=== PATIENT | male | born 1955 | race Caucasian/White ===

== ENCOUNTER 2019-12-17 07:12 | Outpatient (CLI) | payer OTHER, SELFPAY ==
--- NOTE | ~2019-12-17 | CT_ITS ---
EXAMINATION:CT lung screening DATE: 12/17/2019 07:35 INDICATION: Personal history of tobacco dependence. Smoker who quit 15 years ago with 30 pack year hi story. TECHNIQUE: Computed tomography (CT) of the chest was performed without intravenous contrast. Automate d exposure control and iterative reconstruction technique were employed. The dose-length product (DLP ) was 356.58 mGy-cm. COMPARISON: Chest CT 08/24/2018 FINDINGS: Calcified bilateral lung nodules and calcified left hilar and mediastinal lymph nodes are c onsistent with old granulomatous disease. No pleural effusion. The heart size is normal. There are co ronary artery calcifications. No pericardial effusion. Calcifications in the spleen are consistent wi th old granulomatous disease. There is mild thoracic spondylosis. IMPRESSION: 1. Lung-RADS category 1: Negative. Reviewed, dictated and finalized at location A.
== END 2019-12-17 07:13 | disposition home or self-care (01) ==
PROVIDERS: PCP Family Medicine; Visit Provider Family Medicine
DX: Z12.2 Encounter for screening for malignant neoplasm of respiratory organs (principal); Z87.891 Personal history of nicotine dependence
CPT/HCPCS: G0297

== ENCOUNTER 2020-04-02 07:41 | Outpatient (CLI) | payer OTHER, SELFPAY ==
--- NOTE | ~2020-04-02 | US_ITS ---
EXAMINATION: US aorta [facility] DATE: 04/02/2020 08:19 INDICATION: Abdominal aortic aneurysm. Screening for cardiovascular disorders. TECHNIQUE: Grayscale, color Doppler, and pulsed Doppler images of the aorta and common iliac arteries were obtained. COMPARISON: None. FINDINGS: The proximal aorta measures 2.8 cm. The mid aorta measures 2.5 cm. The distal aorta measures 1.9 cm. The right common iliac artery measures 1.4 cm. The left common iliac artery measures 1.4 cm. IMPRESSION: 1. Normal caliber abdominal aorta. Reviewed, dictated and finalized at location A. EXAMINER
== END 2020-04-02 07:42 | disposition home or self-care (01) ==
PROVIDERS: PCP Family Medicine; Visit Provider Family Medicine
DX: Z13.6 Encounter for screening for cardiovascular disorders (principal)
CPT/HCPCS: 76706

== ENCOUNTER 2020-05-11 07:44 | Outpatient (CLI) | payer OTHER, SELFPAY ==
--- NOTE | 2020-06-24 16:02 | WPDHOMESLEEP ---
Sleep Study - Home Unattended Date of Study: 05/11/20 Ordering Provider: Orlando Campos MD Interpreting Physician: Marcia Alfred MD Home Sleep Study Type: Apnea Link Air Height: 1.8 m Weight: 109.316 kg Body Mass Index: 33.6 Neck Circumference (inches): 18 [place]vord: 3 Reason for Sleep Study Feeling tired in the day, restless sleep Sleep History Yao Drake is a 65 year old man with occasional snoring, poor quality sleep and frequent fatigue. He rarely awakens at night with heartburn, belching or coughing. He rarely awakens from sleep feeling short of breath. There is a family history history of sleep issues with his sisters having sleep apnea using CPAP. he occasionally has trouble sleeping at night with a cold. He does not wake up gasping for breath during the night. He rarely sweats excessively at night. He does not notice his heart pounding or beating irregularly at night. He rarely falls asleep during the day, never involuntarily, never while driving. He does not fall asleep while exerting physical effort. He does not have loss of muscle tone with strong emotion. He does not have daytime difficulties due to excessive sleepiness. He does not feel paralyzed on waking or falling asleep. He occasionally has vivid dreamlike scenes upon awakening or falling asleep. He is not afraid to go to sleep. He occasionally remembers his dreams. He occasionally has nightmares. He occasionally has racing thoughts. He rarely feels sad or depressed, rarely feels anxious. He does not have muscular tension. He rarely notices parts of his body jerking. He rarely kicks at night. He rarely has crawling or aching feelings in his legs at night. He rarely has any leg pain at night. He does not have morning jaw pain. He rarely grinds his teeth during sleep. He rarely is bothered by pain during the day. He is not awakened by pain at night. He occasionally wakes up feeling stiff in the morning with sore or achy muscles. He rarely wakes up with pain in the spine. He often awakes in the morning feeling refreshed. He has had no change in weight in the last 12 months. His office note indicates possible erectile dysfunction. Normal bedtime is between 9 and 10:00 p.m., falling asleep within 1/2 hour, waking typically twice at night. When he wakes at night he will read. He stays awake on average for 1/2 hour. He wakes the morning at 8:00 a.m.. We can schedule shows that he may go to bed later, between 10 and 11:00 p.m. still waking at 8 in the morning. He does take naps in the afternoon or evening. He does feel refreshed after a short 10-15 minute nap. Habits: Tobacco quit 15 years ago. Thirty pack year history. 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 Smoking status: Former smoker Alcohol intake: current Alcohol use details: regularly consumes beer Medications Medications: cholesterol medication daily, unknown name Sleep Procedure This test was performed using 4 channel monitoring including respiratory effort channel, snoring channel, heart rate channel, and oxygen saturation channel. This study was scored using CMS guidelines. Sleep Architecture Not applicable for home sleep test. Respiratory Analysis The duration of the study was 9 hours and 20 minutes. The evaluation time was 9 hour
[2020-06-24 16:33] VITALS: BMI 33.6
== END 2020-05-11 07:45 | disposition home or self-care (01) ==
LOC: ANHCSM 07:45
PROVIDERS: PCP Family Medicine; Visit Provider Family Medicine
DX: G47.33 Obstructive sleep apnea (adult) (pediatric) (principal)
CPT/HCPCS: 95806

== ENCOUNTER 2020-05-14 12:01 | Outpatient (CLI) | payer OTHER, SELFPAY ==
[2020-05-14 12:48] LABS: SARS-CoV-2 Ag Negative (Negative)
== END 2020-05-14 12:02 | disposition home or self-care (01) ==
LOC: CHSLAB 12:04
PROVIDERS: PCP Family Medicine; Visit Provider Family Medicine
DX: Z20.828 Contact with and (suspected) exposure to other viral communicable diseases (principal)
CPT/HCPCS: 87426

== ENCOUNTER 2020-05-20 12:31 | Outpatient (CLI) | payer OTHER, SELFPAY ==
[2020-05-20 13:05] LABS: Basophils Absolute Auto 0.02 K/mm3 (0.00-0.10); Basophils Percent Auto 0.4 % (0.0-1.0); Eosinophils Absolute Auto 0.13 K/mm3 (0.02-0.50); Eosinophils Percent Auto 2.4 % (1.0-6.0); Hematocrit 42.1 % (37.0-46.0); Hemoglobin 14.7 g/dL (12.4-15.3); Immature Granulocyte Absolute 0.04 K/mm3 (0.00-0.00); Immature Granulocyte Percent A 0.7 % (0.0-0.0); Lymphocytes Percent Auto 26.1 % (18.0-42.0); Mean Corpuscular HGB Conc 34.9 g/dL (32.0-36.0); Mean Corpuscular Hemoglobin 31.8 pg (27.0-31.0); Mean Corpuscular Volume 91.1 fL (78.0-102.0); Monocytes Absolute Auto 0.55 K/mm3 (0.10-0.90); Monocytes Percent Auto 10.3 % (2.0-11.0); Neutrophils Absolute Auto 3.2 K/mm3 (1.7-7.2); Neutrophils Percent Auto 60.1 % (50.0-70.0); Platelet Count Result 226 K/mm3 (150-420); Red Blood Count 4.62 M/mm3 (4.70-6.10); White Blood Count 5.4 K/mm3 (4.8-10.8)
[2020-05-20 13:14] LABS: Monoscreen Negative (Negative); Negative Monotest Control Negative (Negative); Positive Monotest Control Positive (Positive)
[2020-05-20 14:14] LABS: Alanine Aminotransferase 42 U/L (16-63); Albumin Level 3.7 g/dL (3.4-5.0); Alkaline Phosphatase 57 U/L (46-116); Anion Gap 11 mmol/L (8-16); Aspartate Amino Transferase 41 U/L (15-37); Bilirubin,Total 0.7 mg/dL (0.00-1.00); Blood Urea Nitrogen 12 mg/dL (7-18); Calcium 8.9 mg/dL (8.5-10.1); Carbon Dioxide 25 mmol/L (21-32); Chloride 98 mmol/L (98-108); Estimated Glomerular Filt Rate > 60; Glucose 187 mg/dL (70-99); Osmolality Calculated 282 mOsm/kg (285-295); Potassium 3.9 mmol/L (3.5-5.1); Sodium 134 mmol/L (136-145); Total Protein 7.3 g/dL (6.4-8.2)
[2020-05-20 23:40] LABS: SARS-CoV-2 RNA PCR Positive
== END 2020-05-20 12:32 | disposition home or self-care (01) ==
PROVIDERS: PCP Family Medicine; Visit Provider Family Medicine
DX: U07.1 COVID-19 (principal); R53.81 Other malaise; J06.9 Acute upper respiratory infection, unspecified
CPT/HCPCS: 80053; 85025; 86308; 87081; 87635; 87880; C9803; U0003

== ENCOUNTER 2022-12-14 01:14 | Day surgery (SDC) | payer OTHER, SELFPAY ==
[2022-12-06 13:49] VITALS: BMI 32.1
[2022-12-14 07:09] VITALS: BP 140/80; PULSE 89; RESP 16; TEMP 36.3; O2SAT 96
[2022-12-14] MEDS: LACTATED RINGERS 1,000 ML 150 ML IV CONT (07:20)
--- NOTE | 2022-12-14 07:59 | P.PNAN_ITS ---
Anes - Initial Pre Proc Eval Procedure: Operation Date: 12/14/22 08:30 Proposed Procedures p Colonoscopy - Marcus Santos MD Date/Time: 12/14/22 07:59 Surgeon: Marcus Santos MD Pre Op Diagnosis: hx colon polyps Patient Data Age: 67 Gender: M Height: 1.8 m Weight: 103.6 kg Last Vital Signs Temp 97.4 F L 12/14/22 07:09 Pulse 89 12/14/22 07:09 Resp 16 12/14/22 07:09 BP 140/80 12/14/22 07:09 Pulse Ox 96 12/14/22 07:09 O2 Del Method Room Air 12/14/22 07:09 Allergies Allergy/AdvReac Type Severity Reaction Status Date / Time No Known Allergies Allergy Verified 12/14/22 07:08 Home Medications Medication Instructions Recorded Confirmed Type atorvastatin 20 mg tablet 20 mg PO HS 12/06/22 12/14/22 History Patient hx anesthesia problems: none Family hx anesthesia problems: none Results Review: All pre-operative results and documents have been reviewed as part of the pre-operative evaluation. 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 Smoking packs per day: 1 Smoking cigarettes per day: 20.0 Years smoked: 30 Smoking pack-years: 30.00 Smoking status: Former smoker Tobacco type: cigarettes Alcohol intake: current Drinks per week: 24 Alcohol use details: BEERS Substance use: never Substance use type: does not use Living arrangements: with family Spiritual care concerns: No Anes - Eval Final PreProcedure Day of Procedure 12/14/22 07:59 Patient weight: obese Heart: regular rate and rhythm Lungs: clear to auscultation Airway: Mallampati scale class II Neurological: alert and oriented Last oral intake: >/= 8 hours ASA classification: II Emergent: no Anesthetic plan: proceed Anesthesia type and monitoring: general GIVS and standard monitoring Results Review: All pre-operative results and documents have been reviewed as part of the pre- operative evaluation. Informed Consent: The patient's anesthetic plan and its attendant risks and benefits were discussed with the patient/family/POA. Questions were solicited and answers provided to the satisfaction of the patient/family/POA.
--- NOTE | 2022-12-14 08:13 | PM.HPGS ---
History of Present Illness History of Present Illness Consent: Risks, benefits, and alternatives have been discussed and questions answered. Patient agrees to proceed with procedure. Chief complaint: hx colon polyps Narrative: Yao Drake is a 67 year old male with colon polyp in 2019 Review of Systems Constitutional: Constitutional: Denies headache(s) and Denies weakness Eyes: Eyes: Denies blurry vision ENT: Reports Normal hearing present, Denies headache(s) and Denies neck pain Cardiovascular: Cardiovascular: Denies chest pain and Denies dyspnea Respiratory: Respiratory: Denies dyspnea Gastrointestinal: Gastrointestinal: Reports no additional gastrointestinal complaints Genitourinary: Genitourinary: Denies dysuria Musculoskeletal: Musculoskeletal: Denies neck pain Integumentary/Breasts: Skin/Breast: Denies dry skin Neurologic: Reports Normal hearing present, Denies headache(s) and Denies weakness Psychiatric: Psychiatric: Denies anxiety Endocrine: Endocrine: Denies change in body appearance Hematologic/Lymphatic: Hematologic/Lymphatic: Denies easy bleeding Allergic/Immunologic: Allergic/Immunologic: Denies urticaria PMFSH Past Medical History Medical History (Updated 12/14/22 @ 08:14 by Marcus Santos MD) Adenomatous colon polyp Hay fever Impaired fasting glucose Male erectile disorder Mixed hyperlipidemia Tubular adenoma of colon Family History Family History (Updated 06/24/20 @ 16:09 by Marcia Alfred MD) Sibling Obstructive sleep apnea he has 2 sisters with sleep apnea Mother Diabetes mellitus Father Lung cancer father smoked tobacco, had asbestos exposure Social History Social History (Updated 06/24/20 @ 16:06 by Marcia Alfred MD) Social History: 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 Smoking packs per day: 1 Smoking cigarettes per day: 20.0 Years smoked: 30 Smoking pack-years: 30.00 Smoking status: Former smoker Tobacco type: cigarettes Alcohol intake: current Drinks per week: 24 Alcohol use details: BEERS Substance use: never Substance use type: does not use Living arrangements: with family Spiritual care concerns: No Meds Home Medications and Allergies Home Medications Medication Instructions Recorded Confirmed Type atorvastatin 20 mg tablet 20 mg PO HS 12/06/22 12/14/22 History Allergies Allergy/AdvReac Type Severity Reaction Status Date / Time No Known Allergies Allergy Verified 12/14/22 07:08 Vital Signs Vital Signs - 24 hr 12/14/22 07:09 Temperature 97.4 F L Pulse Rate 89 Respiratory Rate 16 Blood Pressure 140/80 Pulse Oximetry 96 Oxygen Delivery Room Air Exam Const: General: comfortable and no acute distress HENMT: Face/Nose/Sinus: Normal nares present Eyes: General: appearance normal, both eyes and all related structures Neck: Neck: no JVD Resp: Auscultation: clear to auscultation bilaterally Cardio: Rate: regular rate Rhythm: regular rhythm GI: Inspection: non-distended GI Palp: Yes Soft to palpation Skin: General skin exam: normal color Neuro: General: gait normal Speech: normal speech Extrem: General: normal to inspection Psych: Mental Status: mental status grossly normal Assessment and Plan Assessment and plan (1) Adenomatous colon polyp: Code(s): D12.6 - Benign neoplasm of colon, unspecified Status: Acute Assessment and Plan: colonoscopy
[2022-12-14 08:37] VITALS: BP 109/63; PULSE 78; RESP 20; O2SAT 97
[2022-12-14 08:47] VITALS: BP 126/68; PULSE 72; RESP 19; O2SAT 97
[2022-12-14 08:57] VITALS: BP 129/74; PULSE 72; RESP 20; O2SAT 98
== END 2022-12-14 09:05 | disposition home or self-care (01) ==
PROVIDERS: PCP Family Medicine; Visit Provider Internal Medicine Gastroenterology
PROC: 0DJD8ZZ Inspection of Lower Intestinal Tract, Via Natural or Artificial Opening Endoscopic (ICD-10-PCS; CPT 45378; principal; 2022-12-14 08:30)
DX: Z12.11 Encounter for screening for malignant neoplasm of colon (principal); D12.4 Benign neoplasm of descending colon; K57.30 Diverticulosis of large intestine without perforation or abscess without bleeding; K64.8 Other hemorrhoids; E78.2 Mixed hyperlipidemia; Z87.891 Personal history of nicotine dependence; E66.9 Obesity, unspecified; Z68.31 Body mass index [BMI] 31.0-31.9, adult
CPT/HCPCS: 45385; 88305; J2405; J2704; J7120

== ENCOUNTER 2024-08-09 10:46 | Outpatient (CLI) | payer OTHER, SELFPAY ==
--- OUTSIDE RECORDS SUMMARY | 2024-08-09 11:37 | XMS_ITS | Continuity of Care Document ---
Author Organization [facility] Address [address] [place] [address] Phone Care Team Providers Care Metal Bonding Crib Attendant Name Role Phone Harvey OD, Volodymyr Unavailable Unavailable Advance Directives Directive Yes / No Effective Date File Name No Information Encounters Encounter Description Practice Location Reason(s) For Visit Diagnoses Date Provider Providers Copied on Encounter [facility], [address], [place], [place], [id number], [place] tel:[phone] [facility] No Information Mar-0 2-200 0 Harvey OD Volodymyr. [address] , [address], [place], [address], [place]. tel:[phone] Family History Family Member Type Diagnosis Age At Onset No Information Payers Payer name Insurance type Covered green party ID Authoriza tion(s) No Information Social History Type Description Quantity Date Captured Comments Sex Male Smoking Status No Information Chief Complaint And Reason For Visit No Information Reason For Referral Reason For Referral No Information History Of Present Illness Encounter Date Complaint History Of Prese nt Illness No Information Functional Status Date Functional Assessmen t No Information Instructions Date Instruction Additional Infor mation No Information Assessments Type Assessment Date No Information Patient Care Teams Name Effective Dates (start - stop) Status Members No Information
== END 2024-08-09 10:47 | disposition home or self-care (01) ==
LOC: CHSIMG 10:48
PROVIDERS: PCP Family Medicine; Visit Provider Family Medicine
DX: I65.23 Occlusion and stenosis of bilateral carotid arteries (principal); M25.561 Pain in right knee
CPT/HCPCS: 73562

== ENCOUNTER 2024-08-13 13:14 | Outpatient (CLI) | payer OTHER, SELFPAY ==
--- NOTE | ~2024-08-13 | US_ITS ---
EXAMINATION: US carotid duplex BI DATE: 08/13/2024 13:44 INDICATION: Carotid stenosis TECHNIQUE: Grayscale, color Doppler, and pulsed Doppler images of the cervical carotid arteries were obtained. The degree of vessel stenosis is placed in one of the following categories: normal, <50%, 5 0-69%, >=70% but less than near-occlusion, near-occlusion, or total occlusion. Note that percent sten osis relative to normal distal artery lumen diameter is indirectly measured from velocity measurement s as described by Parveen, et al. Radiology 2003; 229:340-346. Notes: Normal: Peak systolic velocity <125 centimeters/sec and no plaque <50%. Peak systolic velocity <125 ( EDV <40; ICA/CCA PSV ratio <2.0; used these factors only a tandem lesions or low cardiac output or co ntralateral disease) 50-69 %: PSV 125-230 (EDV 40-100; ratio 2-4) >= 70% but less than near occlusion: PSV greater than 230 (EDV > 100; ratio> 4.0) Near Occlusion: PSV that is variable; markedly narrowed lumen Occlusion: Absent flow on color/spectral Doppler and no lumen on severino scale. COMPARISON: None. FINDINGS: RIGHT: The right common carotid artery (CCA) peak systolic velocity (PSV) is 112 cm/s. The right internal ca rotid artery (ICA) PSV is 102 cm/s. The right ICA end-diastolic velocity (EDV) is 23 cm/s. The right ICA/CCA PSV ratio is 0.91. The external carotid artery (ECA) PSV is 10 is cm/s. There is retrograde f low in the right vertebral artery. LEFT: The left CCA PSV is 126 cm/s. The left ICA PSV is 74 cm/s. The left ICA EDV is 21 cm/s. The left ICA/ CCA PSV ratio is 0.6. The ECA PSV is 79 cm/s. There is antegrade flow in the left vertebral artery. IMPRESSION: 1. Less than 50% stenosis in the right internal carotid artery by sonographic criteria. Retrograde fl ow present in the right vertebral artery, consistent with occlusion. Consider correlation with CTA ne ck with contrast. 2. Less than 50% stenosis in the left internal carotid artery by sonographic criteria. Reviewed, dictated and finalized at location B. IMPRESSION: 1. Less than 50% stenosis in the right internal carotid artery by sonographic c riteria. Retrograde flow present in the right vertebral artery, consistent with occlusion. Consider correlation with CTA neck with contrast. 2. Less than 50% stenosis in the left internal carotid artery by sonographic cr iteria.
--- OUTSIDE RECORDS SUMMARY | 2024-08-13 14:46 | XMS_ITS | Continuity of Care Document ---
Author Organization [facility] Address [address] [place] [address] Phone Care Team Providers Care Collections Attorney Name Role Phone Harvey OD, Volodymyr Unavailable Unavailable Advance Directives Directive Yes / No Effective Date File Name No Information Encounters Encounter Description Practice Location Reason(s) For Visit Diagnoses Date Provider Providers Copied on Encounter [facility], [address], [place], [place], [id number], [place] tel:[phone] [facility] No Information Mar-0 2-200 0 Harvey OD Volodymyr. [address] , [address], [place], [address], [place]. tel:[phone] Family History Family Member Type Diagnosis Age At Onset No Information Payers Payer name Insurance type Covered constitution party ID Authoriza tion(s) No Information Social [...]
== END 2024-08-13 13:15 | disposition home or self-care (01) ==
LOC: CHSIMG 13:17
PROVIDERS: PCP Family Medicine; Visit Provider Family Medicine
DX: I65.23 Occlusion and stenosis of bilateral carotid arteries (principal)
CPT/HCPCS: 93880